=== PATIENT | male | born 1995 | race Caucasian/White ===

== ENCOUNTER 2019-07-16 11:15 | Emergency (ER) | payer BC ==
[2019-07-16] MEDS ORDERED: Lidocaine 2% 100 MG/5 ML Syringe ONE ×2 (12:08)
--- NOTE | 2019-07-16 12:25 | EDM.PDOC ---
ED HPI GENERAL MEDICAL PROBLEM - General Chief Complaint: Laceration Stated Complaint: dog bite Time Seen by Provider: 07/16/19 11:25 Source of Information: Reports: Patient History Limitations: Reports: No Limitations - History of Present Illness INITIAL COMMENTS - FREE TEXT/NARRATIVE: Patient is a 23-year-old who is seen in the emergency room with a laceration between the left fourth and fifth web this is 1 cm patient apparently was playing with his dog when he accidentally hit his dog's mouth and the canine cut him Onset: Today Duration: Minutes:, Constant Location: Reports: Upper Extremity, Left Quality: Reports: Ache, Dull Severity: Mild Improves with: Reports: None Worsens with: Reports: None Context: Reports: Trauma Treatments [employer]: Reports: Acetaminophen, Dressing(s) Left Hand Pain Score (Numeric/FACES): 3 - Related Data Allergies Allergy/AdvReac Type Severity Reaction Status Date / Time No Known Allergies Allergy Verified 07/16/19 11:27 Home Meds: Home Meds . [No Known Home Meds] 07/16/19 [History] Past Medical History Psychiatric History: Reports: ADHD - Infectious Disease History Infectious Disease History: Reports: None Social & Family History - Family History Family Medical History: Noncontributory - Tobacco Use Smoking Status *Q: Current Some Day Smoker Years of Tobacco use: 5 Packs/Tins Daily: 1 Used Tobacco, but Quit: No Second Hand Smoke Exposure: Yes - Caffeine Use Caffeine Use: Reports: Coffee, Energy Drinks, Soda, Tea Other Caffeine Use: 3 x weekly - Alcohol Use Number of Drinks Per Day: 4 - Recreational Drug Use Recreational Drug Use: Yes Drug Use in Last 12 Months: Yes Recreational Drug Type: Reports: Marijuana/Hashish Recreational Drug Use Frequency: Rarely ED ROS GENERAL - Review of Systems Review Of Systems: ROS reveals no pertinent complaints other than HPI. ED EXAM, SKIN/RASH Exam: See Below Exam Limited By: No Limitations General Appearance: Alert, WD/WN, No Apparent Distress Ears: Normal External Exam, Normal Canal, Hearing Grossly Normal, Normal TMs Nose: Normal Inspection, Normal Mucosa, No Blood Throat/Mouth: Normal Inspection, Normal Lips, Normal Teeth, Normal Gums, Normal Oropharynx, Normal Voice, No Airway Compromise Head: Atraumatic, Normocephalic Neck: Normal Inspection, Supple, Non-Tender, Full Range of Motion Respiratory/Chest: No Respiratory Distress, Lungs Clear, Normal Breath Sounds, No Accessory Muscle Use, Chest Non-Tender Cardiovascular: Normal Peripheral Pulses, Regular Rate, Rhythm, No Edema, No Gallop, No JVD, No Murmur, No Rub GI/Abdominal: Normal Bowel Sounds, Soft, Non-Tender, No Organomegaly, No Distention, No Abnormal Bruit, No Mass (Male) Exam: Deferred, Inguinal Lymphadenopathy Rectal (Males) Exam: Deferred Back Exam: Normal Inspection, Full Range of Motion, NT Extremities: Normal Inspection, Normal Range of Motion, Non-Tender, No Pedal Edema, Normal Capillary Refill Neurological: Alert, Oriented, CN II-XII Intact, Normal Cognition, Normal Gait, Normal Reflexes, No Motor/Sensory Deficits Psychiatric: Normal Affect, Normal Mood Skin: Warm, Dry, Wound/Incision Location, Skin: Upper Extremity, Left Characteristics: Linear (Laceration approximately 1 cm superficial) Associated features: Tenderness, Inflammation Lymphatic: No Adenopathy ED SKIN PROCEDURES - Laceration/Wound Repair Left Distal Ventral Hand Appearance: Clean Distal NVT: Neuro & Vascular Intact Anesthetic Type: Local Local Anesthesia - Lidocaine (Xylocaine): 2% Plain Local Anesthetic Volume: 2cc Skin Prep: Chlorhexidine (Hibiciens) Exploration/Debridement/Repair: In a Bloodless Field Closed with: Sutures Lac/Wound length In cm: 1 Suture Size: 3-0 # of Sutures: 1 Suture Type: Nylon Progress/Comments: Tetanus toxoid up-to-date given on 2011 at this time patient will be sent home with a Band-Aid and Neosporin and Augmentin 875 twice a day 10 days patient needs to keep wound clean or below 1 working may return to work prior to discharge and prior to suturing the patient was irrigated with 500 mL's of fluid normal saline Course - Vital Signs Last Recorded V/S: Last Vital Signs Temp 97.9 F 07/16/19 11:28 Pulse 98 07/16/19 11:28 Resp 20 07/16/19 11:28 BP 155/82 H 07/16/19 11:28 Pulse Ox 99 07/16/19 11:28 - Orders/Labs/Meds Orders: Active Orders 24 hr Category Date Time Status Bacitracin/Neomycin/Polymyxin [Triple Antibiotic Oint] Med 07/16/19 12:04 Once 1 each TOP ONETIME ONE Lidocaine 2% [Xylocaine-MPF 2%] Med 07/16/19 12:04 Once 5 ml INJECT ONETIME ONE Meds: Medications Discontinued Medications Generic Name Dose Route Start Last Admin Trade Name Frank PRN Reason Stop Dose Admin Lidocaine HCl Confirm 07/16/19 12:08 Xylocaine 2% Administered 07/16/19 12:09 Dose 100 mg .ROUTE .STK-MED ONE Departure - Departure Time of Disposition: 12:30 Disposition: Home, Self-Care 01 Condition: Good Clinical Impression: Puncture wound - injury - Discharge Information *PRESCRIPTION DRUG MONITORING PROGRAM REVIEWED*: No *COPY OF PRESCRIPTION DRUG MONITORING REPORT IN PATIENT LUZ: No Care Plan Goals: Patient sent home with Augmentin 875 twice a day 10 days. - My Orders Last 24 Hours: My Active Orders 07/16/19 12:04 Bacitracin/Neomycin/Polymyxin [Triple Antibiotic Oint] 1 each TOP ONETIME ONE Lidocaine 2% [Xylocaine-MPF 2%] 5 ml INJECT ONETIME ONE - Assessment/Plan Last 24 Hours: My Active Orders 07/16/19 12:04 Bacitracin/Neomycin/Polymyxin [Triple Antibiotic Oint] 1 each TOP ONETIME ONE Lidocaine 2% [Xylocaine-MPF 2%] 5 ml INJECT ONETIME ONE
[2019-07-16] MEDS: Lidocaine 2% 5 ML SDV INJECT ONE (13:54)
[2019-07-16] MEDS: Bacitracin/Neomycin/Polymyxin B Oint 0.9 GM U/D Packet TOP ONE (13:54)
== END 2019-07-16 12:55 | disposition home or self-care (01) ==
LOC: LL.ED 11:15
DX: S61.432A Puncture wound without foreign body of left hand, initial encounter (principal); F17.210 Nicotine dependence, cigarettes, uncomplicated; W54.8XXA Other contact with dog, initial encounter; Y93.89 Activity, other specified
CPT/HCPCS: 12001; 99282; J2001

== ENCOUNTER 2023-02-04 07:16 | Emergency (ER) | payer BC ==
[2023-02-04] MEDS ORDERED: Lidocaine 1% 5 ML VIAL INJECT ONE (07:59)
[2023-02-04] MEDS ORDERED: Bacitracin/Neomycin/Polymyxin B Oint 0.9 GM U/D Packet TOP ONE (08:00)
== END 2023-02-04 08:30 | disposition home or self-care (01) ==
LOC: LL.ED 07:16
DX: S61.411A Laceration without foreign body of right hand, initial encounter (principal); W26.0XXA Contact with knife, initial encounter
CPT/HCPCS: 12001; 73130-RT; 99283; J3490